=== PATIENT | female | born 2000 | race Hispanic/Latino ===

== ENCOUNTER 2018-09-28 11:24 | Emergency (ER) | payer OTHER ==
--- NOTE | 2018-09-28 11:47 | RAD ---
3 views left ankle. History is trauma over box with left ankle pain. AP, lateral and oblique views left ankle obtained 3 views left ankle demonstrate no evidence of left ankle fractures, subluxations or bony lesions. IMPRESSION: Unremarkable 3 views left ankle.
== END 2018-09-28 13:00 | disposition home or self-care (01) ==
LOC: ERS 11:24
DX: S90.512A Abrasion, left ankle, initial encounter (principal); J45.909 Unspecified asthma, uncomplicated; Z79.899 Other long term (current) drug therapy; W01.0XXA Fall on same level from slipping, tripping and stumbling without subsequent striking against object, initial encounter